=== PATIENT | male | born 1985 | race Caucasian/White ===

== ENCOUNTER 2023-04-04 08:44 | Emergency (ER) | payer SELFPAY ==
[2023-04-04 09:02] VITALS: BP 148/90; PULSE 62; RESP 18; TEMP 97.8; BMI 29.8
[2023-04-04] MEDS ORDERED: MAG HYDROX/AL HYDROX/SIMETH 30 ML UNIT-DOSE CUP PO ONE (10:28)
[2023-04-04] MEDS ORDERED: FAMOTIDINE 20 MG/50 ML IVPB 20 MG/50 ML MG IVPB ONE ×2 (10:28→10:35)
[2023-04-04] MEDS ORDERED: MAG HYDROX/AL HYDROX/SIMETH 30 ML UNIT-DOSE CUP ONE (10:35)
[2023-04-04 10:53] LABS: BASO % 0.5 % (0-2.0); EOS % 1.2 % (0-4.5); HEMATOCRIT 47.9 % (35.4-49); HEMOGLOBIN 16.3 GM/dL (11.7-16.9); LYMPH % 26.5 % (8-40); MCH 30.7 pg (25.7-33.7); MEAN CELL VOLUME 90.1 fl (80-96); MEAN PLT VOLUME 8.1 fl (7.5-11.1); MONO % 5.5 % (3.8-10.2); NEUT % 66.3 % (42.8-82.8); PLATELET COUNT 251 10^3/uL (134-434); RBC 5.31 M/mm3 (4.00-5.60); RDW 13.7 % (11.9-15.9); WHITE BLOOD COUNT 5.7 K/mm3 (4.0-10.0)
[2023-04-04 11:17] LABS: POTASSIUM 4.7 mmol/L (3.5-5.1)
[2023-04-04 11:19] LABS: CALCIUM 9.4 mg/dL (8.5-10.1)
[2023-04-04 11:20] LABS: ALBUMIN 4.2 g/dl (3.4-5.0); BLOOD UREA NITROGEN 14.1 mg/dL (7-18)
[2023-04-04 11:22] LABS: CREATININE 0.8 mg/dL (0.55-1.3)
[2023-04-04 11:24] LABS: TOT PROT 7.9 g/dl (6.4-8.2)
[2023-04-04 11:25] LABS: BILIRUBIN,TOTAL 0.8 mg/dL (0.2-1)
== END 2023-04-04 15:12 | disposition home or self-care (01) ==
LOC: JER 08:44
PROC: 3E033GC Introduction of Other Therapeutic Substance into Peripheral Vein, Percutaneous Approach (ICD-10-PCS; principal; 2023-04-04)
DX: R10.13 Epigastric pain (principal); K29.70 Gastritis, unspecified, without bleeding
CPT/HCPCS: 36415; 71046-TC-FY; 76705-TC; 80053; 83690; 84484; 85025; 87651; 93005; 93010; 99285-25